=== PATIENT | male | born 2000 | race Hispanic/Latino ===

== ENCOUNTER 2023-07-16 09:34 | Day surgery (SDC) | payer OTHER ==
[2023-07-15 11:15] VITALS: BMI 21.2
[2023-07-16] MEDS ORDERED: Vancomycin 1 GM VIAL ONE (10:12)
[2023-07-16] MEDS ORDERED: Ketorolac Tromethamine 30 MG (1 mL) VIAL ONE ×2 (10:52→13:10)
[2023-07-16] MEDS ORDERED: Fentanyl 250 MCG/5 ML VIAL ONE (10:52)
[2023-07-16] MEDS ORDERED: Dexamethasone 4 mg/ml Vial ONE (10:52)
[2023-07-16] MEDS ORDERED: PROPOFOL 40 ML ONE (10:52)
[2023-07-16] MEDS ORDERED: Ondansetron PF 4 MG/2 ML Vial ONE (10:52)
[2023-07-16] MEDS ORDERED: Lidocaine 2% PF 5 ML VIAL ONE (10:52)
[2023-07-16] MEDS ORDERED: Ropivacaine 0.5% HCl/PF (150 MG/30 ML VIAL) ONE (11:00)
[2023-07-16] MEDS ORDERED: fentaNYL 50 mcg/mL 1 mL Vial ONE (11:01)
[2023-07-16] MEDS ORDERED: Lidocaine 1% MPF 2 ML VIAL ONE (11:01)
[2023-07-16] MEDS ORDERED: Midazolam HCl 2 mg/2 ml Vial ONE (11:01)
[2023-07-16] MEDS ORDERED: Sevoflurane 250 ML INH ANEST BOTTLE ONE (11:05)
[2023-07-16] MEDS ORDERED: CEFAZOLIN 2 GM VIAL ONE (11:37)
== END 2023-07-16 14:10 | disposition home or self-care (01) ==
LOC: CSHSDC 09:34
PROVIDERS: ATTEND Orthopaedic Surgery Sports Medicine
PROC: 0MQN4ZZ Repair Right Knee Bursa and Ligament, Percutaneous Endoscopic Approach (ICD-10-PCS; principal; 2023-07-16)
DX: S83.511A Sprain of anterior cruciate ligament of right knee, initial encounter (principal); S83.281A Other tear of lateral meniscus, current injury, right knee, initial encounter; Z98.890 Other specified postprocedural states; Z90.89 Acquired absence of other organs; W21.02XA Struck by soccer ball, initial encounter
CPT/HCPCS: C1713; J1100; J1885; J2001; J2250; J2405; J2704; J2795; J3010; J3370